=== PATIENT | female | born 1975 | race Two or more races ===

== ENCOUNTER 2017-01-03 22:39 | Emergency (ER) | payer OTHER ==
[~2017-01-03] VITALS: Ht 162.6 cm; Wt 99.0 kg
[~2017-01-03 22:39] MED LIST: ATOR40TA78 PO; CLON2TAB2 PO; LEVO1TAB25 PO; LORA10TA3 PO; METF850T2 PO; NAPR500T PO; PANT40TA5 PO; PROM118S4 PO
[2017-01-03 22:40] VITALS: BP 122/87
[2017-01-03] MEDS ORDERED: HYDROcodone/APAP 5/325 TABLET PO STA (22:57)
[2017-01-03] MEDS ORDERED: KETOROLAC 30 MG/1 ML IM ONE (23:00)
[2017-01-03] MEDS ORDERED: KETOROLAC 30 MG/1 ML ONE (23:10)
[2017-01-03] MEDS ORDERED: HYDROcodone/APAP 5/325 TABLET ONE (23:10)
== END 2017-01-04 00:01 | disposition home or self-care (01) ==
LOC: ED 01-04
DX: S39.012A Strain of muscle, fascia and tendon of lower back, initial encounter (principal); G43.909 Migraine, unspecified, not intractable, without status migrainosus; G40.909 Epilepsy, unspecified, not intractable, without status epilepticus; W01.0XXA Fall on same level from slipping, tripping and stumbling without subsequent striking against object, initial encounter; Y93.01 Activity, walking, marching and hiking; Y92.488 Other paved roadways as the place of occurrence of the external cause; Y99.8 Other external cause status
CPT/HCPCS: 72110; 72220; 96372; 99284; J1885

== ENCOUNTER 2017-08-21 20:41 | Emergency (ER) | payer OTHER ==
[~2017-08-21] VITALS: Ht 165.1 cm; Wt 90.0 kg
[~2017-08-21 20:41] MED LIST changes: +NAPR-856 PO; -NAPR500T PO
[2017-08-21 21:24] LABS: BASOPHILS % (AUTO) 2 % (0-1); EOSINOPHILS # (AUTO) 0.25 x10^3/uL (0-0.4); EOSINOPHILS % (AUTO) 2 % (1-7); LYMPHOCYTES # (AUTO) 3.56 x10^3/uL (1-3.4); LYMPHOCYTES % (AUTO) 33 % (22-44); MD NO; MEAN CORPUSCULAR HEMOGLOBIN 30.9 pg (27.0-34.8); MEAN CORPUSCULAR HGB CONC 33.7 g/dL (32.4-35.8); MEAN CORPUSCULAR VOLUME 91.5 fL (80-100); MEAN PLATELET VOLUME 7.2 fL (7.4-10.4); MONOCYTES # (AUTO) 0.45 x10^3/uL (0.2-0.8); MONOCYTES % (AUTO) 4 % (2-9); NEUTROPHILS # (AUTO) 6.44 x10^3/uL (1.8-6.8); NEUTROPHILS % (AUTO) 59 % (42-75); PLATELET COUNT 378 x10^3/uL (130-400); RED BLOOD COUNT 4.42 x10^6/uL (3.82-5.3); RED CELL DISTRIBUTION WIDTH 14.9 % (9.6-15.2)
[2017-08-21] MEDS ORDERED: ONDANSETRON ODT 8 MG PO ONE (21:30)
[2017-08-21] MEDS ORDERED: MORPHINE SULFATE 4 MG/ML, 1ML IVPush PRN (21:30)
[2017-08-21] MEDS ORDERED: SODIUM CHLORIDE 0.9% 1,000ML IVBOLUS ONE (21:30)
[2017-08-21] MEDS ORDERED: SODIUM CHLORIDE FLUSH 10ML SYR IVF ONE (21:30)
[2017-08-21] MEDS ORDERED: ONDANSETRON ODT 4 MG ONE (21:34)
[2017-08-21] MEDS ORDERED: MORPHINE SULFATE 4 MG/ML, 1ML ONE (21:34)
[2017-08-21 21:35] LABS: ALANINE AMINOTRANSFERASE 28 U/L (12-78); ALBUMIN 3.2 g/dL (3.4-5.0); ANION GAP 8 mmol/L (5-15); CALCIUM 8.7 mg/dL (8.5-10.1); CHLORIDE 110 mmol/L (98-107); CREATININE 0.83 mg/dL (0.55-1.02)
[2017-08-21 21:39] LABS: ALKALINE PHOSPHATASE 98 U/L (45-117); BILIRUBIN,TOTAL 0.1 mg/dL (0.2-1.0); TOTAL PROTEIN 7.6 g/dL (6.4-8.2)
[2017-08-21] MEDS ORDERED: DIPHENHYDRAMINE 50 MG/ML, 1ML ONE (21:50)
[2017-08-21] MEDS ORDERED: DIPHENHYDRAMINE 50 MG/ML, 1ML IVPush ONE (22:00)
[2017-08-21 22:46] VITALS: BP 114/69
[2017-08-21] MEDS ORDERED: OMNIPAQUE 350 MG/ML, 100ML BOTTLE ONE (23:00)
[2017-08-21 23:11] LABS: MICROSCOPIC NOT IND
[2017-08-21 23:16] LABS: CULTURE INDICATED? NO
== END 2017-08-22 01:21 | disposition home or self-care (01) ==
LOC: ED 21:20
DX: R10.32 Left lower quadrant pain (principal); I10 Essential (primary) hypertension; E11.9 Type 2 diabetes mellitus without complications; G40.909 Epilepsy, unspecified, not intractable, without status epilepticus; Z88.5 Allergy status to narcotic agent
CPT/HCPCS: 36415; 74177; 80053; 81003; 84703; 85025; 96374; 96375; 99285; J1200; J7030; Q0162; Q9967

== ENCOUNTER 2018-03-16 22:38 | Emergency (ER) | payer OTHER ==
[~2018-03-16] VITALS: Ht 162.6 cm; Wt 95.0 kg
[~2018-03-16 22:38] MED LIST changes: -CLON2TAB2 PO; +CLON2TAB9 PO; +CODE118S4 PO; +METF850T10 PO; -METF850T2 PO; -PROM118S4 PO
--- NOTE | 2018-03-16 23:14 | NUR ---
PT PRESENTED WITH C/O N/V AND SCHAFFER X PAST 3 DAYS AND NOT GETTING BETTER. MONITORS APPLIED, SIDERAILS UP X2, FAMILY AT BEDSIDE, CALL LIGHT WITHIN REACH. PROVIDED PT WITH WARM BLANKETS, AWAITING ERP FOR EVAL
[2018-03-16] MEDS ORDERED: DIPHENHYDRAMINE 25 MG CAPSULE PO ONE (23:30)
[2018-03-16] MEDS ORDERED: PROCHLORPERAZINE 10MG TABLET PO ONE (23:30)
[2018-03-16] MEDS ORDERED: KETOROLAC 30 MG/1 ML IM ONE (23:30)
[2018-03-16] MEDS ORDERED: ACETAMINOPHEN 325 MG TABLET PO ONE (23:30)
[2018-03-16] MEDS ORDERED: ACETAMINOPHEN 325 MG TABLET ONE (23:35)
[2018-03-16] MEDS ORDERED: PROCHLORPERAZINE 10MG TABLET ONE (23:36)
[2018-03-16] MEDS ORDERED: DIPHENHYDRAMINE 25 MG CAPSULE ONE (23:36)
[2018-03-16] MEDS ORDERED: KETOROLAC 30 MG/1 ML ONE (23:36)
--- NOTE | 2018-03-16 23:47 | NUR ---
pt medicated per mar.
[2018-03-17 00:09] LABS: BASOPHILS # (AUTO) 0.07 x10^3/uL (0-0.1); BASOPHILS % (AUTO) 1 % (0-1); EOSINOPHILS # (AUTO) 0.33 x10^3/uL (0-0.4); EOSINOPHILS % (AUTO) 3 % (1-7); LYMPHOCYTES # (AUTO) 4.09 x10^3/uL (1-3.4); LYMPHOCYTES % (AUTO) 34 % (22-44); MD NO; MEAN CORPUSCULAR HEMOGLOBIN 30.9 pg (27.0-34.8); MEAN PLATELET VOLUME 7.1 fL (7.4-10.4); MONOCYTES # (AUTO) 0.62 x10^3/uL (0.2-0.8); MONOCYTES % (AUTO) 5 % (2-9); NEUTROPHILS # (AUTO) 6.95 x10^3/uL (1.8-6.8); NEUTROPHILS % (AUTO) 58 % (42-75); PLATELET COUNT 331 x10^3/uL (130-400); RED BLOOD COUNT 4.13 x10^6/uL (3.82-5.3); RED CELL DISTRIBUTION WIDTH 13.9 % (9.6-15.2)
--- NOTE | 2018-03-17 00:11 | NUR ---
FLOAT RN: PT RESTING IN ROOM. LAB HAS BEEN IN ROOM. NO ACUTE DISTRESS NOTED. VS STABLE. WILL CONTINUE TO MONITOR WHILE PRIMARY RN IS ON BREAK.
[2018-03-17 00:19] LABS: ALANINE AMINOTRANSFERASE 34 U/L (12-78); ALBUMIN 3.5 g/dL (3.4-5.0); ANION GAP 4 mmol/L (5-15); CALCIUM 9.2 mg/dL (8.5-10.1); CHLORIDE 107 mmol/L (98-107); CREATININE 0.79 mg/dL (0.55-1.02)
[2018-03-17 00:21] LABS: ALKALINE PHOSPHATASE 96 U/L (45-117); BILIRUBIN,TOTAL 0.2 mg/dL (0.2-1.0); TOTAL PROTEIN 7.7 g/dL (6.4-8.2)
[2018-03-17 00:39] LABS: RAPID INFLUENZA A Negative (Negative); RAPID INFLUENZA B Negative (Negative)
--- NOTE | 2018-03-17 00:53 | NUR ---
PA UPDATED REGARDING PT'S C/O OF CONTINUED H/A, ERP AT BEDSIDE FOR REEVAL, ADDITIONAL ORDER RECIEVED FOR CT HEAD.
--- NOTE | 2018-03-17 01:00 | NUR ---
PT TO CT
[2018-03-17] MEDS ORDERED: HYDROmorphone 2 MG/ML, 1ML ONE (01:26)
[2018-03-17] MEDS ORDERED: HYDROmorphone 2 MG/ML, 1ML IM ONE (01:30)
[2018-03-17 01:34] VITALS: BP 105/54
--- NOTE | 2018-03-17 01:34 | NUR ---
PT MEDICATED PER MAR, FAMILY AT BEDSIDE, CALL LIGHT WITHIN REACH.
== END 2018-03-17 02:12 | disposition home or self-care (01) ==
LOC: ED 03-17 00:15
DX: K29.00 Acute gastritis without bleeding (principal); B34.9 Viral infection, unspecified; G43.009 Migraine without aura, not intractable, without status migrainosus
CPT/HCPCS: 36415; 70450; 74021; 80053; 82962; 83690; 85025; 87400; 96372; 99284; J1170; J1885; Q0163; Q0164

== ENCOUNTER 2018-10-09 20:17 | Emergency (ER) | payer OTHER ==
[~2018-10-09] VITALS: Ht 162.6 cm; Wt 87.0 kg
[2018-10-10 01:05] VITALS: BP 119/72
== END 2018-10-10 01:32 | disposition home or self-care (01) ==
LOC: ED 23:57
DX: N83.291 Other ovarian cyst, right side (principal); R10.31 Right lower quadrant pain; R11.2 Nausea with vomiting, unspecified; E11.9 Type 2 diabetes mellitus without complications; Z90.710 Acquired absence of both cervix and uterus; Z88.0 Allergy status to penicillin; Z88.5 Allergy status to narcotic agent
CPT/HCPCS: 36415; 74176; 76830; 80053; 81001; 83690; 84703; 85025; 96374; 96375; 96376; 99284; J2270; J2405

== ENCOUNTER 2018-10-10 03:24 | Emergency (ER) | payer OTHER ==
[~2018-10-10] VITALS: Ht 162.6 cm; Wt 85.0 kg
[2018-10-10 05:46] VITALS: BP 112/83
== END 2018-10-10 05:50 | disposition home or self-care (01) ==
LOC: ED 05:21
DX: N83.291 Other ovarian cyst, right side (principal); F41.1 Generalized anxiety disorder; R55 Syncope and collapse; R06.00 Dyspnea, unspecified; I10 Essential (primary) hypertension; E11.9 Type 2 diabetes mellitus without complications; G40.909 Epilepsy, unspecified, not intractable, without status epilepticus; F17.200 Nicotine dependence, unspecified, uncomplicated; Z90.710 Acquired absence of both cervix and uterus
CPT/HCPCS: 36415; 71045; 80048; 82040; 84484; 85025; 93005; 99284; Q0162; Q0177

== ENCOUNTER 2018-10-14 15:52 | Emergency (ER) | payer OTHER ==
[~2018-10-14] VITALS: Ht 162.6 cm; Wt 86.0 kg
[~2018-10-14 15:52] MED LIST changes: +LORA-247 PO; -LORA10TA3 PO; +METF500T17 PO
[2018-10-14 16:39] LABS: BASOPHILS # (AUTO) 0.07 x10^3/uL (0-0.1); BASOPHILS % (AUTO) 1 % (0-1); EOSINOPHILS # (AUTO) 0.39 x10^3/uL (0-0.4); EOSINOPHILS % (AUTO) 4 % (1-7); LYMPHOCYTES # (AUTO) 3.25 x10^3/uL (1-3.4); LYMPHOCYTES % (AUTO) 34 % (22-44); MD NO; MEAN CORPUSCULAR HEMOGLOBIN 30.7 pg (27.0-34.8); MEAN CORPUSCULAR HGB CONC 33.4 g/dL (32.4-35.8); MEAN PLATELET VOLUME 6.9 fL (7.4-10.4); MONOCYTES # (AUTO) 0.39 x10^3/uL (0.2-0.8); MONOCYTES % (AUTO) 4 % (2-9); NEUTROPHILS # (AUTO) 5.59 x10^3/uL (1.8-6.8); NEUTROPHILS % (AUTO) 58 % (42-75); PLATELET COUNT 346 x10^3/uL (130-400); RED BLOOD COUNT 4.62 x10^6/uL (3.82-5.3); RED CELL DISTRIBUTION WIDTH 13.6 % (9.6-15.2)
[2018-10-14 16:46] LABS: ALBUMIN 3.8 g/dL (3.4-5.0); ANION GAP 7 mmol/L (5-15); CALCIUM 8.7 mg/dL (8.5-10.1); CHLORIDE 109 mmol/L (98-107)
--- NOTE | 2018-10-14 18:59 | NUR ---
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
--- NOTE | 2018-10-14 19:06 | NUR ---
Provided report to ADWOA Guerrero. All questions answered. NADN. Cesar RN and ADWOA Silveira. to assume care of pt.
--- NOTE | 2018-10-14 19:09 | NUR ---
er md in to assess pt
--- NOTE | 2018-10-14 19:16 | NUR ---
PT REPORTS PAIN IN THE LOW BACK AND LEFT LEG WITH MOVMENT THAT STARTED AROUND 1200 TODAY AND HAS CONTINUED UNTIL NOW. PT REPORTS DECREASED PAIN WHEN SITTING STILL AND SEVERE PAIN WITH MOVEMENT.
[2018-10-14] MEDS ORDERED: ONDANSETRON ODT 4 MG ONE (19:22)
[2018-10-14] MEDS ORDERED: HYDROmorphone 2 MG/ML, 1ML ONE ×2 (19:22→20:45)
--- NOTE | 2018-10-14 19:27 | NUR ---
PT MEDICATED FOR PAIN PER EMAR
[2018-10-14] MEDS ORDERED: ONDANSETRON ODT 4 MG PO ONE (19:30)
[2018-10-14] MEDS ORDERED: HYDROmorphone 1 MG/ML, 1ML INJ IM PRN (19:30)
[2018-10-14 19:51] LABS: MICROSCOPIC INDICATED
[2018-10-14 20:27] LABS: CULTURE INDICATED? YES
[2018-10-14] MEDS ORDERED: DIAZEPAM 5 MG/ML, 10ML VIAL IM ONE (20:30)
[2018-10-14] MEDS ORDERED: HYDROmorphone 2 MG/ML, 1ML IM ONE (20:30)
[2018-10-14] MEDS ORDERED: DIAZEPAM 5 MG/ML, 2ML ONE (20:44)
[2018-10-14] MEDS ORDERED: HYDROmorphone 2 MG/ML, 1ML IVPush ONE (21:00)
[2018-10-14] MEDS ORDERED: DIAZEPAM 5 MG/ML, 2ML IVPush ONE (21:00)
[2018-10-14 21:37] VITALS: BP 113/71
== END 2018-10-14 21:48 | disposition home or self-care (01) ==
LOC: ED 20:26
DX: M54.16 Radiculopathy, lumbar region (principal); F17.200 Nicotine dependence, unspecified, uncomplicated; I10 Essential (primary) hypertension; E11.9 Type 2 diabetes mellitus without complications; G43.909 Migraine, unspecified, not intractable, without status migrainosus; G40.909 Epilepsy, unspecified, not intractable, without status epilepticus; Z90.710 Acquired absence of both cervix and uterus
CPT/HCPCS: 36415; 72148; 80048; 81001; 82040; 85025; 87086; 96372; 96374; 96375; 99284; J1170; J3360; Q0162

== ENCOUNTER 2019-02-10 20:34 | Emergency (ER) | payer OTHER ==
[~2019-02-10] VITALS: Ht 162.6 cm; Wt 107.0 kg
[2019-02-10 20:39] VITALS: BP 115/88
[2019-02-10] MEDS ORDERED: DIAZEPAM 5 MG TABLET ONE (21:42)
[2019-02-10] MEDS ORDERED: KETOROLAC 30 MG/1 ML ONE (21:42)
[2019-02-10] MEDS ORDERED: KETOROLAC 30 MG/1 ML IM ONE (22:00)
[2019-02-10] MEDS ORDERED: DIAZEPAM 5 MG TABLET PO ONE (22:00)
[2019-02-10 22:24] LABS: BASOPHILS # (AUTO) 0.06 x10^3/uL (0-0.1); BASOPHILS % (AUTO) 1 % (0-1); EOSINOPHILS # (AUTO) 0.35 x10^3/uL (0-0.4); EOSINOPHILS % (AUTO) 3 % (1-7); LYMPHOCYTES # (AUTO) 3.78 x10^3/uL (1-3.4); LYMPHOCYTES % (AUTO) 31 % (22-44); MD NO; MEAN CORPUSCULAR HEMOGLOBIN 31.4 pg (27.0-34.8); MEAN CORPUSCULAR HGB CONC 33.6 g/dL (32.4-35.8); MEAN CORPUSCULAR VOLUME 93.4 fL (80-100); MEAN PLATELET VOLUME 7.4 fL (7.4-10.4); MONOCYTES # (AUTO) 0.67 x10^3/uL (0.2-0.8); MONOCYTES % (AUTO) 6 % (2-9); NEUTROPHILS # (AUTO) 7.25 x10^3/uL (1.8-6.8); NEUTROPHILS % (AUTO) 60 % (42-75); PLATELET COUNT 327 x10^3/uL (130-400); RED BLOOD COUNT 4.49 x10^6/uL (3.82-5.3)
[2019-02-10 22:33] LABS: ANION GAP 5 mmol/L (5-15); CALCIUM 8.8 mg/dL (8.5-10.1); CHLORIDE 109 mmol/L (98-107); CREATININE 0.79 mg/dL (0.55-1.02)
--- NOTE | 2019-02-10 23:21 | NUR ---
Patient/Caregiver given discharge instructions and they have confirmed that they understand the instructions. Patient ambulatory with steady gait.
== END 2019-02-10 23:27 | disposition home or self-care (01) ==
LOC: ED 22:42
DX: M54.42 Lumbago with sciatica, left side (principal); M54.12 Radiculopathy, cervical region; M62.838 Other muscle spasm; E11.9 Type 2 diabetes mellitus without complications; I10 Essential (primary) hypertension; G40.909 Epilepsy, unspecified, not intractable, without status epilepticus; G43.909 Migraine, unspecified, not intractable, without status migrainosus
CPT/HCPCS: 36415; 73030; 73060; 80048; 85025; 96372; 99284; J1885

== ENCOUNTER 2019-03-10 15:06 | Emergency (ER) | payer OTHER ==
[~2019-03-10] VITALS: Ht 165.1 cm; Wt 109.5 kg
--- NOTE | 2019-03-10 15:38 | NUR ---
METAL CUT OFF SAW TENDER: PT TO ROOM FROM LOBBY VIA WHEELCHAIR
[2019-03-10] MEDS ORDERED: MORPHINE SULFATE 4 MG/ML, 1ML IVPush PRN (16:00)
[2019-03-10] MEDS ORDERED: SODIUM CHLORIDE FLUSH 10ML SYR IVF ONE (16:00)
--- NOTE | 2019-03-10 16:01 | NUR ---
PT SITTING ON EDGE OF GURNEY AWAKE & COMFORTABLE, RESPONDS APPROP TO STAFF, NAD, VISITOR AT BS, COMFORT MEASURES PROVIDED, CALL LIGHT WITHIN REACH.
--- NOTE | 2019-03-10 16:10 | NUR ---
PT TO CT
[2019-03-10 16:13] LABS: BASOPHILS # (AUTO) 0.16 x10^3/uL (0-0.1); BASOPHILS % (AUTO) 1 % (0-1); EOSINOPHILS # (AUTO) 0.25 x10^3/uL (0-0.4); EOSINOPHILS % (AUTO) 2 % (1-7); LYMPHOCYTES # (AUTO) 3.33 x10^3/uL (1-3.4); LYMPHOCYTES % (AUTO) 29 % (22-44); MD NO; MEAN CORPUSCULAR HEMOGLOBIN 31.1 pg (27.0-34.8); MEAN CORPUSCULAR HGB CONC 33.6 g/dL (32.4-35.8); MEAN CORPUSCULAR VOLUME 92.8 fL (80-100); MEAN PLATELET VOLUME 7.3 fL (7.4-10.4); MONOCYTES # (AUTO) 0.48 x10^3/uL (0.2-0.8); MONOCYTES % (AUTO) 4 % (2-9); NEUTROPHILS # (AUTO) 7.24 x10^3/uL (1.8-6.8); NEUTROPHILS % (AUTO) 63 % (42-75); PLATELET COUNT 320 x10^3/uL (130-400); RED BLOOD COUNT 4.31 x10^6/uL (3.82-5.3); RED CELL DISTRIBUTION WIDTH 14.8 % (9.6-15.2)
[2019-03-10 16:26] LABS: ALANINE AMINOTRANSFERASE 56 U/L (12-78); ALBUMIN 3.3 g/dL (3.4-5.0); ANION GAP 8 mmol/L (5-15); CALCIUM 8.6 mg/dL (8.5-10.1); CHLORIDE 111 mmol/L (98-107); CREATININE 0.84 mg/dL (0.55-1.02)
[2019-03-10 16:30] LABS: ALKALINE PHOSPHATASE 80 U/L (45-117); BILIRUBIN,TOTAL 0.2 mg/dL (0.2-1.0); TOTAL PROTEIN 7.7 g/dL (6.4-8.2)
[2019-03-10 16:36] LABS: MICROSCOPIC INDICATED
--- NOTE | 2019-03-10 16:41 | NUR ---
PT RETURNED FROM CT.
[2019-03-10 16:46] LABS: CULTURE INDICATED? YES
[2019-03-10 17:00] VITALS: BP 119/74
--- NOTE | 2019-03-10 17:00 | NUR ---
PT UPRIGHT ON GURNEY AWAKE & COMFORTABLE, RESPONDS APPROP TO STAFF, NAD, COMFORT MEASURES PROVIDED, VISITOR AT BS, CALL LIGHT WITHIN REACH.
[2019-03-10] MEDS ORDERED: KETOROLAC 30 MG/1 ML ONE (17:06)
--- NOTE | 2019-03-10 17:22 | NUR ---
Patient given discharge instructions and Rx, they have confirmed that they understand the instructions. Patient ambulatory with steady gait.
[2019-03-10] MEDS ORDERED: KETOROLAC 30 MG/1 ML IM ONE (17:30)
== END 2019-03-10 18:46 | disposition home or self-care (01) ==
LOC: ED 17:15 → MERGE 17:15 → ED 17:16
DX: R10.84 Generalized abdominal pain (principal); E11.9 Type 2 diabetes mellitus without complications
CPT/HCPCS: 36415; 74176; 80053; 81001; 83690; 84703; 85025; 87086; 96372; 99284; J1885

== ENCOUNTER 2019-05-27 00:16 | Emergency (ER) | payer OTHER ==
[~2019-05-27] VITALS: Ht 162.6 cm; Wt 108.9 kg
[2019-05-27 00:18] VITALS: BP 126/96
--- NOTE | 2019-05-27 00:44 | NUR ---
THIS IS A 44 YO F W/ C/O NAUSEA, CHILLS, SOB, PAINFUL URINATION, COUGH, HEADACHES, RT AND LT LWR ABD PAIN AND 1 EPISODE OF VOMITING X3 DAYS. DENIES CP. PT CONVERSING IN FULL SENTENCES W/O DIFFICULTY. RESP EVEN AND UNLABORED. NADN. PT RESTING ON GURNEY W/ FAMILY AT BEDSIDE. CALL LIGHT IN REACH.
--- NOTE | 2019-05-27 00:46 | NUR ---
PT AMBULATED TO THE BR W/ A STEADY GAIT.
[2019-05-27 01:01] LABS: RAPID INFLUENZA A Negative (Negative); RAPID INFLUENZA B POSITIVE (Negative)
[2019-05-27 04:39] LABS: CULTURE INDICATED? NO; MICROSCOPIC INDICATED
== END 2019-05-27 04:31 ==
LOC: ED 00:29
DX: J10.1 Influenza due to other identified influenza virus with other respiratory manifestations (principal); I10 Essential (primary) hypertension; E11.9 Type 2 diabetes mellitus without complications; G40.909 Epilepsy, unspecified, not intractable, without status epilepticus; Z90.710 Acquired absence of both cervix and uterus
CPT/HCPCS: 71046; 81001; 87400; 99284

== ENCOUNTER 2019-05-28 20:02 | Emergency (ER) | payer OTHER ==
[~2019-05-28] VITALS: Ht 162.6 cm; Wt 108.1 kg
--- NOTE | 2019-05-28 20:36 | NUR ---
PT WAS SEEN IN ED YESTERDAY AND TREATED FOR FLU A AND B WITH PNUEMONIA. WAS SENT HOME WITH A Z PACK, TAMIFLU AND ZOFRAN. PT RETURNED TODAY BECAUSE SHE NOT FEELING ANY BETTER. PT CO OF CHILLS AND BODY ACHES. PT TEMP WAS 98.1 AND O2 IS 985 ON RM AIR. BLANKET PROVIDED. FAMILY IS BEDSIDE.
[2019-05-28] MEDS ORDERED: KETOROLAC 30 MG/1 ML ONE (20:53)
--- NOTE | 2019-05-28 20:57 | NUR ---
REPORT GIVEN TO ADWOA RODRIGUEZ
[2019-05-28] MEDS ORDERED: KETOROLAC 30 MG/1 ML IVPush ONE (21:00)
[2019-05-28] MEDS ORDERED: SODIUM CHLORIDE 0.9% 1,000ML IVBOLUS ONE (21:00)
[2019-05-28 21:20] VITALS: BP 125/72
[2019-05-28 21:31] LABS: BASOPHILS # (AUTO) 0.27 x10^3/uL (0-0.1); BASOPHILS % (AUTO) 2 % (0-1); EOSINOPHILS # (AUTO) 0.29 x10^3/uL (0-0.4); EOSINOPHILS % (AUTO) 2 % (1-7); LYMPHOCYTES # (AUTO) 3.58 x10^3/uL (1-3.4); LYMPHOCYTES % (AUTO) 29 % (22-44); MD NO; MEAN CORPUSCULAR HEMOGLOBIN 31.6 pg (27.0-34.8); MEAN CORPUSCULAR HGB CONC 34.3 g/dL (32.4-35.8); MEAN CORPUSCULAR VOLUME 92.1 fL (80-100); MEAN PLATELET VOLUME 7.5 fL (7.4-10.4); MONOCYTES # (AUTO) 0.59 x10^3/uL (0.2-0.8); MONOCYTES % (AUTO) 5 % (2-9); NEUTROPHILS # (AUTO) 7.47 x10^3/uL (1.8-6.8); NEUTROPHILS % (AUTO) 61 % (42-75); PLATELET COUNT 326 x10^3/uL (130-400); RED BLOOD COUNT 4.41 x10^6/uL (3.82-5.3); RED CELL DISTRIBUTION WIDTH 13.9 % (9.6-15.2)
[2019-05-28 21:40] LABS: ALANINE AMINOTRANSFERASE 67 U/L (12-78); ALBUMIN 3.4 g/dL (3.4-5.0); ANION GAP 7 mmol/L (5-15); CALCIUM 8.7 mg/dL (8.5-10.1); CHLORIDE 109 mmol/L (98-107)
[2019-05-28 21:42] LABS: ALKALINE PHOSPHATASE 91 U/L (45-117); BILIRUBIN,TOTAL 0.2 mg/dL (0.2-1.0); CREATININE 0.81 mg/dL (0.55-1.02); TOTAL PROTEIN 7.8 g/dL (6.4-8.2)
== END 2019-05-28 23:05 | disposition home or self-care (01) ==
LOC: ED 22:30
DX: E11.65 Type 2 diabetes mellitus with hyperglycemia (principal); I10 Essential (primary) hypertension; R05 Cough; M79.10 Myalgia, unspecified site; R06.02 Shortness of breath
CPT/HCPCS: 36415; 71046; 80053; 85025; 93005; 96361; 96374; 99285; J1885; J7030

== ENCOUNTER 2019-06-02 01:38 | Emergency (ER) | payer OTHER ==
[~2019-06-02] VITALS: Ht 162.6 cm; Wt 108.0 kg
[2019-06-02] MEDS ORDERED: methylPREDNISolone SOD SUCC 125 MG/2 ML ONE (01:49)
[2019-06-02] MEDS ORDERED: ALBUTEROL/IPRATROPIUM 2.5MG/0.5MG, 3 ML ONE ×2 (01:55→03:28)
[2019-06-02] MEDS ORDERED: methylPREDNISolone SOD SUCC 125 MG/2 ML IM ONE (02:00)
[2019-06-02] MEDS ORDERED: ALBUTEROL/IPRATROPIUM 2.5MG/0.5MG, 3 ML NPPB ONE ×2 (02:00→03:30)
--- NOTE | 2019-06-02 02:17 | NUR ---
THIS IS A 44 YO FEMALE PRESENTING TO THE ER WITH CONTINUAL WHEEZING COUGH, UNABLE TO ANSWER ANY QEUSTIONS, UNABLE TO TALK. PER DAUGHTER PATIENT WAS FLU POSITIVE May, PATIENT HAS HX OF "BRONCHITIS ATTACKS" IN THE PAST. LUNG SOUNDS ARE CLEAR, WHEEZING IS AUDIBLE AND LOCATED IN THE TRACHEA/THROAT. UNABLE TO GET FULL MEDICAL HX AT THIS TIME DUE TO PATIENT CONDITION. PIV PLACED, PATIENT MEDICATED PER EMAR, GIVEN SOLUMEDROL VIA IV NOT IM PER VERBAL ORDER FROM ARMIDA MANCIA. RT COMPLETED TREATMENT. ALL MONITORING IN PLACE, SPO2 AT 100% ON 3L VIA OXYMASK.
[2019-06-02 03:09] VITALS: BP 124/80
[2019-06-02] MEDS ORDERED: IBUPROFEN 600 MG TABLET ONE (03:25)
--- NOTE | 2019-06-02 03:29 | NUR ---
PATIENT MEDICATED PER EMAR FOR MUSCLE SORENESS RELATED TO COUGHING. PATIENT TO RECEIVED SECOND NEB TREATMENT
[2019-06-02] MEDS ORDERED: IBUPROFEN 600 MG TABLET PO ONE (03:30)
--- NOTE | 2019-06-02 04:07 | NUR ---
AFTER SECOND NEB TREATMENT, LUNG SOUNDS AND TRACHEAL SOUND CLEAR, LESS WROK OF BREATHING, VSS ON RA AT 95%, PATIENT STATES "I FEEL A LOT BETTER". PIV REMOVED, PATIENT TBDC PER ARMIDA MANCIA.
--- NOTE | 2019-06-02 04:14 | NUR ---
Patient given discharge instructions and they have confirmed that they understand the instructions. Patient ambulatory with steady gait.
== END 2019-06-02 04:16 | disposition home or self-care (01) ==
LOC: ED 04:00
DX: J45.909 Unspecified asthma, uncomplicated (principal); J20.9 Acute bronchitis, unspecified; I10 Essential (primary) hypertension; F17.210 Nicotine dependence, cigarettes, uncomplicated; E11.9 Type 2 diabetes mellitus without complications; Z72.9 Problem related to lifestyle, unspecified
CPT/HCPCS: 71046; 93005; 94640; 96372; 99284; 99406; J2930

== ENCOUNTER 2019-09-15 19:48 | Emergency (ER) | payer OTHER ==
[~2019-09-15] VITALS: Ht 165.1 cm; Wt 109.5 kg
[2019-09-15] MEDS ORDERED: ASPIRIN 325 MG TABLET PO ONE (20:30)
[2019-09-15 21:02] LABS: BASOPHILS # (AUTO) 0.05 x10^3/uL (0-0.1); BASOPHILS % (AUTO) 1 % (0-1); EOSINOPHILS # (AUTO) 0.38 x10^3/uL (0-0.4); EOSINOPHILS % (AUTO) 3 % (1-7); LYMPHOCYTES % (AUTO) 29 % (22-44); MD NO; MEAN CORPUSCULAR HEMOGLOBIN 30.8 pg (27.0-34.8); MEAN CORPUSCULAR VOLUME 90.7 fL (80-100); MEAN PLATELET VOLUME 7.4 fL (7.4-10.4); MONOCYTES # (AUTO) 0.53 x10^3/uL (0.2-0.8); MONOCYTES % (AUTO) 5 % (2-9); NEUTROPHILS % (AUTO) 63 % (42-75); PLATELET COUNT 337 x10^3/uL (130-400); RED BLOOD COUNT 4.65 x10^6/uL (3.82-5.3)
[2019-09-15 21:10] LABS: ALANINE AMINOTRANSFERASE 49 U/L (12-78); ALBUMIN 3.5 g/dL (3.4-5.0); ANION GAP 6 mmol/L (5-15); CALCIUM 8.9 mg/dL (8.5-10.1); CHLORIDE 107 mmol/L (98-107); CREATININE 0.97 mg/dL (0.55-1.02)
[2019-09-15 21:14] LABS: ALKALINE PHOSPHATASE 98 U/L (45-117); BILIRUBIN,TOTAL 0.2 mg/dL (0.2-1.0); TOTAL PROTEIN 8.2 g/dL (6.4-8.2); TROPONIN I < 0.015 ng/mL (0.000-0.045)
[2019-09-15] MEDS ORDERED: ASPIRIN 325 MG TABLET ONE (21:18)
[2019-09-15 21:21] VITALS: BP 107/67
== END 2019-09-15 22:17 | disposition home or self-care (01) ==
LOC: ED 22:00
DX: R07.89 Other chest pain (principal); R06.00 Dyspnea, unspecified; R05 Cough; R00.0 Tachycardia, unspecified; I10 Essential (primary) hypertension; E11.9 Type 2 diabetes mellitus without complications; G40.909 Epilepsy, unspecified, not intractable, without status epilepticus; G43.909 Migraine, unspecified, not intractable, without status migrainosus; Z76.0 Encounter for issue of repeat prescription
CPT/HCPCS: 36415; 71045; 80053; 83880; 84484; 84703; 85025; 93005; 99285